=== PATIENT | female | born 1940 | race Caucasian/White ===

== ENCOUNTER → 2020-12-09 | Outpatient (CLI) | payer MEDICARE, OTHER ==
[~2020-12-09] MED LIST: ALBU2.5V5 INH; ALBU3IS INH; ALBU90OI INH; ALBU90OI61 INH; AMOCLA875 PO; ASPI81CH PO; Aspir 8181 MG PO; BENZ100A PO; CEFP200 PO; CENTRUM SILVER1 EAC2 PO; CICLODAN6.6 ML; CLOBET30L; CLON.2 PO; CODACE30 PO; DULO60 PO; FISH1000 PO; FLECTOR; FLOVENT HFA12 GM INH; FLUC200 PO; GABA300 PO; GABA300T24; HYDCHL25 PO; HYDMOR2 PO; IBUP800 PO; K-Dur20 MEQ PO; LISI20 PO; LOPE2C PO; LOSARTAN POTAS100 MG PO; OMEP20ER PO; OXYB5 PO; OXYC5; PIOG15 PO; PIRO10 PO; PRED20 PO; PROM25 PO; Pyridium200 MG PO; QVAR7.3 G1 IH; REPAGLINIDE0.5 MG PO; ROPI1 PO; RXHYDMOR2 PO; SERT50 PO; SULTRIDS PO; TOCO1000 PO; VENL37.5 PO; VITAMIN D-32000 UNI1 PO; Vibramycin100 MG PO; Zofran8 MG PO
== END ==
LOC: LAB 10:34 → LAB SHORT 10:34
DX: R30.0 Dysuria (principal)
CPT/HCPCS: 87077; 87086; 87186

== ENCOUNTER → 2021-01-22 | Outpatient (CLI) | payer MEDICARE, OTHER ==
[2021-01-22 14:38] LABS: Appearance, Urine Clear (Clear); Bilirubin, Urine Neg (Neg); Blood, Urine Neg (Neg); Color, Urine Yellow (P-Yellow); Glucose Qualitative, Urine Neg (Normal); Ketones, Urine Neg (Neg); Leukocyte Esterase, Urine Neg (Neg); Nitrite, Urine Pos (Neg); Protein, Urine Neg (Neg); Urobilinogen, Urine NORM (Normal)
[2021-01-22 14:48] LABS: Bacteria Many /hpf; Red Blood Cells, Urine 0-2 /hpf (0-2); Squamous Epithelial Cells Few /hpf (Few)
== END ==
LOC: LAB SHORT 13:49 → PLD 13:49
PROVIDERS: Nurse Practitioner Family
DX: R30.9 Painful micturition, unspecified (principal); R30.0 Dysuria
CPT/HCPCS: 81001; 87077; 87086; 87186

== ENCOUNTER 2021-03-05 07:58 | Emergency (ER) | payer MEDICARE, OTHER ==
[~2021-03-05] VITALS: Ht 165.1 cm; Wt 122.5 kg
[~2021-03-05 07:58] MED LIST changes: -ALBU2.5V5 INH; -ALBU90OI INH; -ASPI81CH PO; -Aspir 8181 MG PO; -CEFP200 PO; -CICLODAN6.6 ML; -CLOBET30L; -CODACE30 PO; -DULO60 PO; -FLOVENT HFA12 GM INH; -GABA300 PO; -IBUP800 PO; -OXYB5 PO; -PIOG15 PO; -Pyridium200 MG PO; -REPAGLINIDE0.5 MG PO; -Vibramycin100 MG PO
[2021-03-05 08:37] LABS: BASOPHILS ABSOLUTE AUTO 0.03 K/mm3 (0.00-0.23); BASOPHILS PERCENT AUTO 0 % (0-2); EOSINOPHILS ABSOLUTE AUTO 0.24 K/mm3 (0.00-0.68); EOSINOPHILS PERCENT AUTO 3 % (0-6); Hematocrit 39.1 % (33.0-51.0); Hemoglobin 12.7 g/dL (11.5-16.0); IMMATURE GRAN ABSOLUTE AUTO 0.07 K/mm3 (0.00-0.10); IMMATURE GRAN PERCENT AUTO 1 % (0-1); LYMPHOCYTES PERCENT AUTO 15 % (21-46); MONOCYTES ABSOLUTE AUTO 0.54 K/mm3 (0.16-1.47); MONOCYTES PERCENT AUTO 7 % (4-13); Mean Corpuscular HGB 29.3 pg (26.0-34.0); Mean Corpuscular HGB Conc 32.5 g/dL (31.5-36.5); Mean Corpuscular Volume 90 fL (80-100); Mean Platelet Volume 9.1 fL (9.1-12.4); NEUTROPHILS ABSOLUTE AUTO 5.55 K/mm3 (1.96-9.15); NEUTROPHILS PERCENT AUTO 74 % (41-73); Platelet Count 184 K/mm3 (150-400); RDW Coefficient Variation 14.6 % (11.7-14.2); RDW Standard Deviation 48.1 fL (35.1-46.3); Red Blood Cell Count 4.34 M/mm3 (3.80-5.20); White Blood Cell Count 7.53 K/mm3 (4.00-11.30)
[2021-03-05 08:59] LABS: Alanine Aminotransfer (ALT/SGP 12 U/L (12-78); Albumin/Globulin Ratio 0.8 (0.8-1.8); Alk Phos 127 U/L (50-136); Anion Gap 4 mmol/L (6-16); Aspartate Aminotrans (AST/SGOT 8 U/L (12-37); Bilirubin, Total 0.5 mg/dL (0.1-1.0); Blood Urea Nitrogen 16 mg/dL (8-24); Bun/Creatinine Ratio 26.1 (12.0-20.0); CO2, Blood 31 mmol/L (21-32); Calcium, Blood 8.5 mg/dL (8.5-10.1); Chloride, Blood 109 mmol/L (98-108); Creatinine, Blood 0.61 mg/dL (0.40-1.00); Globulin, Blood 3.8 g/dL (2.2-4.0); Glomerular Filtration Rate >60 (60-); Glucose, Blood 117 mg/dL (70-99); Potassium, Blood 3.6 mmol/L (3.5-5.5); Sodium, Blood 144 mmol/L (136-145); Total Protein, Blood 6.8 g/dL (6.4-8.2); Troponin I <0.015 ng/mL (0.000-0.040)
[2021-03-05] MEDS ORDERED: ALBU90OI INH ×2 (09:30→10:06)
[2021-03-05] MEDS ORDERED: Vibramycin100 MG PO ×2 (09:51→10:06)
== END 2021-03-05 10:11 | disposition home or self-care (01) ==
LOC: ER 07:58
PROVIDERS: Physician Assistant
DX: J18.9 Pneumonia, unspecified organism (principal); J45.901 Unspecified asthma with (acute) exacerbation; Z79.899 Other long term (current) drug therapy
CPT/HCPCS: 36415; 71045; 80053; 84484; 85025; 93005; 93010; 94640; 96374; 99285-25; J2930

== ENCOUNTER 2021-03-24 21:15 | Inpatient (IN) | payer MEDICARE, OTHER ==
[~2021-03-24] VITALS: Ht 165.1 cm; Wt 118.0 kg
[~2021-03-24 21:15] MED LIST changes: +ALBU90OI INH; +CEFP200 PO; -CLON.2 PO; -OMEP20ER PO; +Pyridium200 MG PO; -ROPI1 PO; +Vibramycin100 MG PO
[2021-03-24 21:51] LABS: BASOPHILS ABSOLUTE AUTO 0.02 K/mm3 (0.00-0.23); BASOPHILS PERCENT AUTO 0 % (0-2); EOSINOPHILS ABSOLUTE AUTO 0.03 K/mm3 (0.00-0.68); EOSINOPHILS PERCENT AUTO 0 % (0-6); Hematocrit 41.7 % (33.0-51.0); Hemoglobin 13.2 g/dL (11.5-16.0); IMMATURE GRAN ABSOLUTE AUTO 0.05 K/mm3 (0.00-0.10); IMMATURE GRAN PERCENT AUTO 1 % (0-1); LYMPHOCYTES ABSOLUTE AUTO 0.69 K/mm3 (0.84-5.20); LYMPHOCYTES PERCENT AUTO 8 % (21-46); MONOCYTES ABSOLUTE AUTO 1.08 K/mm3 (0.16-1.47); MONOCYTES PERCENT AUTO 13 % (4-13); Mean Corpuscular HGB 29.2 pg (26.0-34.0); Mean Corpuscular HGB Conc 31.7 g/dL (31.5-36.5); Mean Corpuscular Volume 92 fL (80-100); Mean Platelet Volume 10.5 fL (9.1-12.4); NEUTROPHILS ABSOLUTE AUTO 6.37 K/mm3 (1.96-9.15); NEUTROPHILS PERCENT AUTO 77 % (41-73); Platelet Count 155 K/mm3 (150-400); RDW Coefficient Variation 14.4 % (11.7-14.2); RDW Standard Deviation 48.8 fL (35.1-46.3); Red Blood Cell Count 4.52 M/mm3 (3.80-5.20); White Blood Cell Count 8.24 K/mm3 (4.00-11.30)
[2021-03-24 22:08] LABS: Alanine Aminotransfer (ALT/SGP 15 U/L (12-78); Albumin, Blood 2.7 g/dL (3.4-5.0); Albumin/Globulin Ratio 0.7 (0.8-1.8); Alk Phos 86 U/L (50-136); Anion Gap 3 mmol/L (6-16); Aspartate Aminotrans (AST/SGOT 14 U/L (12-37); Bilirubin, Total 0.6 mg/dL (0.1-1.0); Blood Urea Nitrogen 23 mg/dL (8-24); Bun/Creatinine Ratio 24.3 (12.0-20.0); CO2, Blood 26 mmol/L (21-32); Calcium, Blood 8.5 mg/dL (8.5-10.1); Chloride, Blood 108 mmol/L (98-108); Creatinine, Blood 0.95 mg/dL (0.40-1.00); Glomerular Filtration Rate >60 (60-); Glucose, Blood 139 mg/dL (70-99); Potassium, Blood 3.7 mmol/L (3.5-5.5); Sodium, Blood 137 mmol/L (136-145); Total Protein, Blood 6.7 g/dL (6.4-8.2)
[2021-03-24] MEDS ORDERED: ROPI1 PO (22:14)
[2021-03-24] MEDS ORDERED: CLON.2 PO (22:14)
[2021-03-24] MEDS ORDERED: OMEP20ER PO (22:14)
[2021-03-24] MEDS ORDERED: DULO60 PO (22:15)
[2021-03-24] MEDS ORDERED: OXYB5 PO (22:16)
[2021-03-24] MEDS ORDERED: PIOG15 PO (22:16)
--- NOTE | 2021-03-25 04:11 | NUR ---
SHIFT SUMMARY A/OX3, 1 ASSIST TO BSC. APPEARS ANXIOUS AT TIMES. URINARY FREQUENCY AND FLANK PAIN NOTED. VSS, NO ACUTE CHANGES AT THIS TIME. BED IN LOWEST POSITION WITH CALL LIGHT IN REACH. WILL CONTINUE TO MONITOR AND REPORT TO ONCOMING RN.
[2021-03-25 06:08] LABS: BASOPHILS ABSOLUTE AUTO 0.01 K/mm3 (0.00-0.23); BASOPHILS PERCENT AUTO 0 % (0-2); EOSINOPHILS ABSOLUTE AUTO 0.04 K/mm3 (0.00-0.68); EOSINOPHILS PERCENT AUTO 1 % (0-6); Hematocrit 38.8 % (33.0-51.0); Hemoglobin 12.2 g/dL (11.5-16.0); IMMATURE GRAN ABSOLUTE AUTO 0.06 K/mm3 (0.00-0.10); IMMATURE GRAN PERCENT AUTO 1 % (0-1); LYMPHOCYTES ABSOLUTE AUTO 0.77 K/mm3 (0.84-5.20); LYMPHOCYTES PERCENT AUTO 13 % (21-46); MONOCYTES ABSOLUTE AUTO 0.72 K/mm3 (0.16-1.47); MONOCYTES PERCENT AUTO 12 % (4-13); Mean Corpuscular HGB 28.4 pg (26.0-34.0); Mean Corpuscular HGB Conc 31.4 g/dL (31.5-36.5); Mean Corpuscular Volume 90 fL (80-100); Mean Platelet Volume 10.7 fL (9.1-12.4); NEUTROPHILS ABSOLUTE AUTO 4.25 K/mm3 (1.96-9.15); NEUTROPHILS PERCENT AUTO 73 % (41-73); Platelet Count 141 K/mm3 (150-400); RDW Coefficient Variation 14.4 % (11.7-14.2); RDW Standard Deviation 48.3 fL (35.1-46.3); Red Blood Cell Count 4.29 M/mm3 (3.80-5.20); White Blood Cell Count 5.85 K/mm3 (4.00-11.30)
[2021-03-25 06:35] LABS: Anion Gap 3 mmol/L (6-16); Blood Urea Nitrogen 18 mg/dL (8-24); Bun/Creatinine Ratio 20.7 (12.0-20.0); CO2, Blood 28 mmol/L (21-32); Calcium, Blood 8.1 mg/dL (8.5-10.1); Chloride, Blood 109 mmol/L (98-108); Creatinine, Blood 0.87 mg/dL (0.40-1.00); Glomerular Filtration Rate >60 (60-); Glucose, Blood 105 mg/dL (70-99); Potassium, Blood 3.5 mmol/L (3.5-5.5); Sodium, Blood 140 mmol/L (136-145)
--- NOTE | 2021-03-25 14:18 | NUR ---
ADMIT: 03/24/21 DISCHARGE: DX: Positive blood cultures CC: [email or web address] ISAIAH CALL: RESIDENCE: None CAREGIVER: Mary Rodgers Or Charity Barker, Child, Charity Barker, Child, Kristin Leo, Child, DX: asthma, depressive disorder, HTN, environmental allergy, GERD, PVD, see list DME: DM supplies, Knee brace, walking boot CCM: Referral- HOME HEALTH: [facility]- 2019 SUMMARY: Admit: 03/24/21 03/25/21- per chart review with Dr. Patton, pt is on IV antibiotics and has isolation order in place. Palliative care was asked to consult regarding her getting a POLST and have advanced care planning. There is no d/c plan for the pt at this time. -tyler
--- NOTE | 2021-03-25 14:59 | NUR ---
Spiritual care note: Per admit trigger, I was tasked to meet with Luther to address code status. she has a POLST in EMR from 2013 that reflects her wishes as Full Code, no intubation, tube feeding. Luther states she has not slept in weeks and has been laying in bed at home crying. She is physically and emotionally exhausted and fels confused by her complicated medical problems. She states that her PCP told her she needs "a kidney, liver, and pancreas doctor." But, she has no idea how to go about this. She has 2 dtrs, one lives with her. Luther appears deconditioned and far too tired for indepth/complicated conversation. I advised her that her 7 year old POLST should probably be revisited. She agreed, but also told me she wants CPR, no intubation. Partially completed POLST on bedisde table. I asked Harjinder in palliative care to follow up tomorrow. Hopefully, William will be more rested. Prayer provided and luther was thankful for encouragement. [employer] services will remain available.
--- NOTE | 2021-03-25 16:47 | NUR ---
SHIFT SUMMARY NO ACUTE CHANGES T/O SHIFT, A&Ox4, CALM AND COOPERATIVE. DENIES ANY DISTRESS BESIDES FEELING NOT WELL THESE LAST FEW WEEKS. FREQUENT AND URGENT URINATION CONTINUES. NO BM THIS SHIFT. GOOD ORAL INTAKE. ABD STILL FIRM AND TENDER TO THE TOUCH, PAIN LOCATED AT THE BILATERAL FLANKS WITH PALPATION. TREATED X1 FOR PAIN. NS @ 75 ML/HR CONTINUES. CONTACT PRECAUTIONS DC'D PER MD ORDERS. PT IS CURRENTLY RESTING IN BED, CALL LIGHT WITHIN REACH. CALLS APPROPRIATELY.
--- NOTE | 2021-03-26 04:00 | NUR ---
SHIFT SUMMARY A/O X3, ABLE TO MAKE NEEDS KNOWN. SOME CONFUSION WITH ANXIOUSNESS NOTED AT TIMES. COOPERATIVE WIHT CARE. C/O PAIN/DISCOMFORT TO HEAD; MEDICATED PER EMAR. FREQUENCY AND URGENCY REMAINS WITH URINATION. ENCOURAGING WATER, BUT PREFERS CRANBERRY JUICE. REMAINS ON IV HYDRATION /c NS @ 75 ML/HR. NO ACUTE CHANGES NOTED OVERNIGHT. MINIMAL REST NOTED, BUT ENCOURAGED. BED REMAINS IN LOWEST POSITION. CALL LIGHT AND BELONGINGS WITHIN REACH. CONTINUE WITH CURRENT PLAN OF CARE. REPORT TO ONCOMING RN.
--- NOTE | 2021-03-26 15:33 | NUR ---
03/26/21- per chart review with Dr. Sanchez, pt is still on IV antibiotics and there is no plan for d/c at this time. Palliative care did come and met with pt and they filled out a new POLST form.-tyler
--- NOTE | 2021-03-26 16:52 | NUR ---
SHIFT SUMMARY NO ACUTE CHANGES T/O SHIFT, A&Ox4, CALM AND COOPERATIVE c CARE. DENIES ANY DISTRESS BESIDES ABD DISCOMFORT AND BACK PAIN. TREATED PER EMAR WHICH APPEARED TO BE EFFECTIVE, PT ABLE TO SLEEP AFTER. MORNING VITALS WERE COMPLETED, O2 SAT WAS IN THE 80'S. PT REPORTS PREVIOUS DX OF MARTHA, DOES NOT USE CPAP @ NIGHT. 3 L/MIN O2 REQUIRED TO KEEP O2 SATS IN THE 90'S. CONT PULSE OX ORDER TO BE WORN TONIGHT TO SEE IF PT WILL REQUIRE/QUALIFY FOR CPAP. O2 SATS STABLE DURING DAY AND WHILE PT IS AWAKE. PT IS CURRENTLY LYING IN BED, WITH BED ALARM AND CALL LIGHT WITHIN REACH. NO BM, CONTINUES TO HAVE URGENCY AND FREQUENT URINATION.
--- NOTE | 2021-03-27 04:35 | NUR ---
SHIFT SUMMARY PT COMPLAINED OF CONTINUED FREQUENCY AND DISCOMFORT WITH URINATION. PT REPORTED THAT AFTER LUNCH DURING THE DAY YESTERDAY FEELING BLOATED AND NAUSEOUS. THIS IMPROVED BUT DID NOT RESOLVE COMPLETELY. PT COMPLAINED OF BACK AND ABD PAIN. MEDICATED X 1 W/ ULTRAM 50 MG. CONT OX PLACED ON PT BY RT. PT FOUND TO BE IN THE LOW 80'S ON RA THIS AM. PLACED ON 3 L VIA NC. O2 SATS IN THE MID 90'S. OTHERWISE VITAL SIGNS STABLE. WILL CONTINUE TO MONITOR AND REPORT TO DAY RN.
--- NOTE | 2021-03-27 16:39 | NUR ---
SHIFT SUMMARY PT A&Ox4. COOPERATIVE WITH CARE. PT ON 2L O2 AND CONT BIOX WITH SAT'S IN LOW 90'S. PT SBA WITH CANE TO BSC. CONTINENT WITH FREQUENT URINATION. DENIES DYSURIA. PT REPORTS NO BM x4 DAYS. BOWEL CARE STARTED TODAY. REPORTED PAIN 1x TODAY IN BLE AND BACK. MEDICATED PER EMAR. PT GETTING IV ABX AND FLUIDS. SPOKE ON PHONE WITH DAUGHTER, NICHOLAS, AND UPDATED ON PLAN OF CARE. PER DR MUSTAFA, CURRENT PLAN IS FOR PT TO DC TOMORROW. VITALS REVIEWED. PT DENIES ANY NEEDS AT THIS TIME.
--- NOTE | 2021-03-28 05:00 | NUR ---
SHIFT SUMMARY PT APPEARED TO BE SLIGHTLY MORE CONFUSED THIS EVENING. INTERMITTENTLY MAKING STATEMENTS THAT DIDN'T MAKE SENSE. MENTATION APPEARS MORE CLEAR THIS AM. PT REMAINED ON 2 L THROUGHOUT THE NIGHT. O2 SATS IN THE LOW 90'S. PT WOULD REMOVE O2 OCCASSIONALLY AND WOULD DIP DOWN IN TO THE 80'S ON RA. PT CONTINUES TO HAVE FREQUENCY AND URGENCY WITH VOIDING. BACK PAIN. MEDICATED X 1 W/ ULTRAM. PT HAD A HARD TIME FEELING COMFORTABLE IN THE HOSPITAL BED. VITAL SIGNS HAVE BEEN STABLE. WILL CONTINUE TO MONITOR.
[2021-03-28] MEDS ORDERED: ASPI81CH PO (14:32)
[2021-03-28] MEDS ORDERED: CEFP200 PO (14:33)
--- NOTE | 2021-03-28 15:00 | NUR ---
PATIENT D/C'D TO HOME WITH DAUGHTER. DC INSTRUCTIONS AND EDUCATION DISCUSSED WITH PATIENT AND COPY PROVIDED. RX MEDICATIONS FAXED TO [facility]. PATIENT DENIES ANY FURTHER QUESTIONS OR CONCERNS.
[2021-06-11] MEDS ORDERED: CODACE30 PO (11:05)
[2021-06-11] MEDS ORDERED: Aspir 8181 MG PO (11:05)
[2021-06-11] MEDS ORDERED: ALBU2.5V5 INH (11:05)
[2021-06-11] MEDS ORDERED: CLON.2 PO (11:06)
[2021-06-11] MEDS ORDERED: CICLODAN6.6 ML (11:06)
[2021-06-11] MEDS ORDERED: CLOBET30L (11:06)
[2021-06-11] MEDS ORDERED: DULO60 PO (11:07)
[2021-06-11] MEDS ORDERED: FLOVENT HFA12 GM INH (11:07)
[2021-06-11] MEDS ORDERED: GABA300 PO (11:08)
[2021-06-11] MEDS ORDERED: OMEP20ER PO (11:08)
[2021-06-11] MEDS ORDERED: IBUP800 PO (11:08)
[2021-06-11] MEDS ORDERED: HYDCHL25 PO (11:08)
[2021-06-11] MEDS ORDERED: OXYB5 PO (11:09)
[2021-06-11] MEDS ORDERED: REPAGLINIDE0.5 MG PO ×2 (11:09)
[2021-06-11] MEDS ORDERED: PIOG15 PO (11:09)
[2021-06-11] MEDS ORDERED: ROPI1 PO (11:10)
== END 2021-03-28 15:00 | disposition home or self-care (01) | DRG 690 ==
LOC: ER 21:15 → MEDS 21:16
PROVIDERS: Nurse Practitioner Acute Care; Physician Assistant; ADMIT Family Medicine
DX: N10 Acute pyelonephritis (principal); R78.81 Bacteremia; Z68.41 Body mass index [BMI] 40.0-44.9, adult; N39.0 Urinary tract infection, site not specified; B96.20 Unspecified Escherichia coli [E. coli] as the cause of diseases classified elsewhere; R19.7 Diarrhea, unspecified; R09.02 Hypoxemia; I10 Essential (primary) hypertension; Z86.16 Personal history of COVID-19; K21.9 Gastro-esophageal reflux disease without esophagitis; E78.5 Hyperlipidemia, unspecified; I73.9 Peripheral vascular disease, unspecified; E66.01 Morbid (severe) obesity due to excess calories; F41.8 Other specified anxiety disorders; M19.90 Unspecified osteoarthritis, unspecified site; F41.9 Anxiety disorder, unspecified; E11.51 Type 2 diabetes mellitus with diabetic peripheral angiopathy without gangrene; Z88.1 Allergy status to other antibiotic agents; Z88.5 Allergy status to narcotic agent; Z96.639 Presence of unspecified artificial wrist joint; Z79.899 Other long term (current) drug therapy; Z96.651 Presence of right artificial knee joint; Z90.49 Acquired absence of other specified parts of digestive tract; Z98.890 Other specified postprocedural states; Z85.028 Personal history of other malignant neoplasm of stomach
CPT/HCPCS: 36415; 71045; 80048; 80053; 81001; 82947; 83605; 83735; 85025; 87015; 87040; 87045; 87046; 87077; 87086; 87186; 87205; 87493; 87899; 94762; 96365; 96372; 96375; 96376; 99284-25; A9270; G0378; J0696; J1650; J2405; J7030; J7120

== ENCOUNTER 2021-06-18 11:01 | Day surgery (SDC) | payer MEDICARE, OTHER ==
[~2021-06-18] VITALS: Ht 162.6 cm; Wt 118.9 kg
[~2021-06-18 11:01] MED LIST changes: +ALBU2.5V5 INH; +ASPI81CH PO; +Aspir 8181 MG PO; +CICLODAN6.6 ML; +CLOBET30L; +CLON.2 PO; +CODACE30 PO; +DULO60 PO; +FLOVENT HFA12 GM INH; +GABA300 PO; +IBUP800 PO; +OMEP20ER PO; +OXYB5 PO; +PIOG15 PO; +REPAGLINIDE0.5 MG PO; +ROPI1 PO
== END 2021-06-18 14:30 | disposition home or self-care (01) ==
LOC: ORSCSDS 11:01
PROVIDERS: Internal Medicine Gastroenterology
PROC: 0DBH8ZX Excision of Cecum, Via Natural or Artificial Opening Endoscopic, Diagnostic (ICD-10-PCS; principal; 2021-06-18 12:00)
PROC: 0DBK8ZX Excision of Ascending Colon, Via Natural or Artificial Opening Endoscopic, Diagnostic (ICD-10-PCS; principal; 2021-06-18 12:00)
DX: Z12.11 Encounter for screening for malignant neoplasm of colon (principal); D12.0 Benign neoplasm of cecum; D12.2 Benign neoplasm of ascending colon; K57.30 Diverticulosis of large intestine without perforation or abscess without bleeding; E66.9 Obesity, unspecified; K64.8 Other hemorrhoids; Z68.42 Body mass index [BMI] 45.0-49.9, adult; I10 Essential (primary) hypertension; E78.5 Hyperlipidemia, unspecified; F41.9 Anxiety disorder, unspecified; J45.909 Unspecified asthma, uncomplicated; E11.9 Type 2 diabetes mellitus without complications; K21.9 Gastro-esophageal reflux disease without esophagitis; G47.30 Sleep apnea, unspecified; Z79.899 Other long term (current) drug therapy
CPT/HCPCS: 82947; 88305; J2704; J7120

== ENCOUNTER 2022-02-21 12:49 | Emergency (ER) | payer MEDICARE, OTHER ==
[~2022-02-21] VITALS: Ht 162.6 cm; Wt 126.1 kg
[2022-02-21 14:08] LABS: BASOPHILS ABSOLUTE AUTO 0.04 K/mm3 (0.00-0.23); BASOPHILS PERCENT AUTO 1 % (0-2); EOSINOPHILS ABSOLUTE AUTO 0.23 K/mm3 (0.00-0.68); EOSINOPHILS PERCENT AUTO 3 % (0-6); Hematocrit 43.6 % (33.0-51.0); IMMATURE GRAN ABSOLUTE AUTO 0.09 K/mm3 (0.00-0.10); IMMATURE GRAN PERCENT AUTO 1 % (0-1); LYMPHOCYTES ABSOLUTE AUTO 1.19 K/mm3 (0.84-5.20); LYMPHOCYTES PERCENT AUTO 17 % (21-46); MONOCYTES ABSOLUTE AUTO 0.54 K/mm3 (0.16-1.47); MONOCYTES PERCENT AUTO 8 % (4-13); Mean Corpuscular HGB 28.9 pg (26.0-34.0); Mean Corpuscular HGB Conc 32.1 g/dL (31.5-36.5); Mean Corpuscular Volume 90 fL (80-100); Mean Platelet Volume 10.3 fL (9.1-12.4); NEUTROPHILS ABSOLUTE AUTO 4.95 K/mm3 (1.96-9.15); NEUTROPHILS PERCENT AUTO 70 % (41-73); Platelet Count 267 K/mm3 (150-400); RDW Standard Deviation 49.5 fL (35.1-46.3); Red Blood Cell Count 4.84 M/mm3 (3.80-5.20); White Blood Cell Count 7.04 K/mm3 (4.00-11.30)
[2022-02-21 14:43] LABS: Alanine Aminotransfer (ALT/SGP 60 U/L (12-78); Albumin, Blood 3.2 g/dL (3.4-5.0); Albumin/Globulin Ratio 0.8 (0.8-1.8); Alk Phos 260 U/L (50-136); Anion Gap 1 mmol/L (6-16); Aspartate Aminotrans (AST/SGOT 91 U/L (12-37); Bilirubin, Total 0.8 mg/dL (0.1-1.0); Blood Urea Nitrogen 16 mg/dL (8-24); Bun/Creatinine Ratio 25.2 (12.0-20.0); CO2, Blood 31 mmol/L (21-32); Calcium, Blood 9.1 mg/dL (8.5-10.1); Chloride, Blood 107 mmol/L (98-108); Creatinine, Blood 0.64 mg/dL (0.40-1.00); Globulin, Blood 4.1 g/dL (2.2-4.0); Glomerular Filtration Rate >60 (60-); Glucose, Blood 120 mg/dL (70-99); Potassium, Blood 4.9 mmol/L (3.5-5.5); Sodium, Blood 139 mmol/L (136-145); Total Protein, Blood 7.3 g/dL (6.4-8.2)
[2022-02-21] MEDS ORDERED: BENZ100A PO (18:12)
[2022-02-21] MEDS ORDERED: Vibramycin100 MG PO (18:12)
== END 2022-02-21 18:16 | disposition home or self-care (01) ==
LOC: ER 12:49
PROVIDERS: Physician Assistant
DX: R05.9 Cough, unspecified (principal); K21.9 Gastro-esophageal reflux disease without esophagitis; E11.9 Type 2 diabetes mellitus without complications; I10 Essential (primary) hypertension; Z79.899 Other long term (current) drug therapy; Z88.8 Allergy status to other drugs, medicaments and biological substances
CPT/HCPCS: 36415; 71046; 80053; 83690; 83880; 85025; 99283-25

== ENCOUNTER → 2022-12-20 | Outpatient (CLI) | payer MEDICARE, OTHER ==
[~2022-12-20] MED LIST changes: +DIGOX125 MC1 PO; +ELIQUIS5 M2 PO; +FURO40 PO; +METO100ER PO; +POTA10T PO; +Prinivil10 MG PO
== END ==
LOC: PLD 08:19 → LAB SHORT 08:19
DX: L60.2 Onychogryphosis (principal); B35.1 Tinea unguium
CPT/HCPCS: 88305; 88312

== ENCOUNTER → 2022-12-20 | Outpatient (CLI) | payer MEDICARE, OTHER | END | disposition home or self-care (01) | LOC: LAB SHORT 17:04 → LAB 17:04 | DX: B35.1 Tinea unguium (principal); L60.2 Onychogryphosis | CPT/HCPCS: 87220 ==

== ENCOUNTER → 2022-12-28 | Outpatient (CLI) | payer MEDICARE, OTHER | LOC: LAB SHORT 13:00 → LAB 13:00 → LAB FUT 12-16 17:10 | DX: R35.0 Frequency of micturition (principal); R30.0 Dysuria | CPT/HCPCS: 87077; 87086; 87186 ==

== ENCOUNTER 2023-01-29 23:33 | Inpatient (IN) | payer MEDICARE, OTHER ==
[~2023-01-29] VITALS: Ht 162.6 cm; Wt 121.3 kg
[2023-01-29] MEDS ORDERED: GABA100 (23:57)
[2023-01-29] MEDS ORDERED: BUPROPION XL150 M1 PO (23:58)
[2023-01-29] MEDS ORDERED: PIOGLITAZONE HC15 MG PO (23:59)
[2023-01-30 00:49] LABS: BASOPHILS ABSOLUTE AUTO 0.02 K/mm3 (0.00-0.23); BASOPHILS PERCENT AUTO 0 % (0-2); EOSINOPHILS ABSOLUTE AUTO 0.17 K/mm3 (0.00-0.68); EOSINOPHILS PERCENT AUTO 2 % (0-6); Hematocrit 41.6 % (33.0-51.0); Hemoglobin 12.7 g/dL (11.5-16.0); IMMATURE GRAN ABSOLUTE AUTO 0.06 K/mm3 (0.00-0.10); IMMATURE GRAN PERCENT AUTO 1 % (0-1); LYMPHOCYTES ABSOLUTE AUTO 0.93 K/mm3 (0.84-5.20); LYMPHOCYTES PERCENT AUTO 11 % (21-46); MONOCYTES ABSOLUTE AUTO 0.64 K/mm3 (0.16-1.47); MONOCYTES PERCENT AUTO 7 % (4-13); Mean Corpuscular HGB 29.7 pg (26.0-34.0); Mean Corpuscular HGB Conc 30.5 g/dL (31.5-36.5); Mean Corpuscular Volume 97 fL (80-100); Mean Platelet Volume 10.1 fL (9.1-12.4); NEUTROPHILS PERCENT AUTO 79 % (41-73); Platelet Count 234 K/mm3 (150-400); RDW Coefficient Variation 17.1 % (11.7-14.2); RDW Standard Deviation 60.2 fL (35.1-46.3); Red Blood Cell Count 4.28 M/mm3 (3.80-5.20); White Blood Cell Count 8.72 K/mm3 (4.00-11.30)
[2023-01-30 00:52] LABS: Source, Urine Straight Cath
[2023-01-30 01:00] LABS: Bilirubin, Urine Neg (Neg); Blood, Urine Neg (Neg); Glucose Qualitative, Urine Neg (Neg); Ketones, Urine Neg (Neg); Leukocyte Esterase, Urine Neg (Neg); Nitrite, Urine Neg (Neg); Protein, Urine 3+ (Neg); Urobilinogen, Urine 1+ (Normal)
[2023-01-30 01:08] LABS: Albumin, Blood 2.9 g/dL (3.4-5.0); Albumin/Globulin Ratio 0.7 (0.8-1.8); Bilirubin, Total 0.8 mg/dL (0.1-1.0); Calcium, Blood 8.6 mg/dL (8.5-10.1); Globulin, Blood 4.1 g/dL (2.2-4.0); Potassium, Blood 3.9 mmol/L (3.5-5.5)
[2023-01-30 01:16] LABS: Appearance, Urine Clear (Clear); Color, Urine Yellow (P-Yellow)
[2023-01-30 01:17] LABS: Bacteria Few /hpf; Red Blood Cells, Urine Not Seen /hpf (0-2); Squamous Epithelial Cells Mod /hpf (Few); White Blood Cells, Urine 0-2 /hpf (0-5)
[2023-01-30 01:18] LABS: Amorphous Mod (0-Heavy)
[2023-01-30 01:33] LABS: Influenza A, PCR NEGATIVE (NEGATIVE); Influenza B, PCR NEGATIVE (NEGATIVE); Resp Syncytial Virus, PCR NEGATIVE (NEGATIVE); SARS-Cov-2 (COVID-19) PCR, MMC NEGATIVE (NEGATIVE)
--- NOTE | 2023-01-30 11:43 | NUR ---
PROVIDER NOTIFIED VIA TELEPHONE RE: PT POC BLOOD GLUCOSE LEVEL. NO NEW ORDERS AT THIS TIME.
--- NOTE | 2023-01-30 13:05 | NUR ---
UPDATE: HYPOGLYCEMIC PROTOCOL FOLLOWED. PT ABLE TO DRINK CRANBERRY JUICE. REPEAT POC GLUCOSE CHECK REVEALS BLOOD SUGAR OF 145. WILL CONTINUE TO MONITOR AND TREAT ACCORDINGLY UNTIL CHANGE OF SHIFT.
--- NOTE | 2023-01-30 17:41 | NUR ---
SHIFT SUMMARY: PT QUITE RESTLESS/AGITATED AND CONFUSED THIS AM. PT NOT ANSWERING QUESTIONS OR COOPERATING W/CARE UNTIL APPROX 1100 WHEN SHE BECOMES MORE ALERT AND ABLE TO FOLLOW COMMANDS. PT ORIENTED TO SELF, CONFUSED RE: LOCATION/SITUATION AND BENEFITS F/FREQUENT REMINDERS. PT HAS BEEN SLEEPING MOST OF THE AFTERNOON W/DAUGHTER AT BEDSIDE, AGITATION AND RESTLESSNESS APPEAR IMPROVED. O2 SATS MAINTAINED >92% ON BASELINE 2 L/MIN NC. AFIB CONTINUES ON MONITOR, RATE HAS IMPROVED TO 110-120s. NO BM THIS SHIFT. ATTENDS IN PLACE, CHECKED OFTEN AND CHANGED NEEDED. PT REPOSITIONED PER PROTOCOL. POWERGLIDE PLACED TO LEWIS, FLUIDS INFUSING PER ORDERS. PT DAUGHTER WENT HOME, RECENTLY CALLED W/CONCERN ABOUT IMAGING TESTS AND ADMINISTRATION OF GABAPENTIN (STATES HALLUCINATIONS). PROVIDER CALLED AND CONCERNS SHARED W/NO NEW ORDERS/CHANGES. PROVIDER STATES CONVERSATION HAD AT BEDSIDE W/DAUGHTER RE: GABAPENTIN W/PLAN TO KEEP ORDER. PT'S DAUGHTER UPDATED VIA TELEPHONE, V/U AND REQUESTS GABAPENTIN ADMINISTERED ONLY IF PT C/O PAIN. WILL PASS INFORMATION ALONG TO ONCOMING RN. AT THIS TIME, PT IS RESTING IN BED W/EYES CLOSED. RESPIRATIONS EVEN AND UNLABORED. NADN. CALL LIGHT WITHIN REACH, BED ALARM ON. WILL CONTINUE TO MONITOR AND TREAT ACCORDINGLY UNTIL CHANGE OF SHIFT.
[2023-01-31 04:08] LABS: BASOPHILS ABSOLUTE AUTO 0.05 K/mm3 (0.00-0.23); BASOPHILS PERCENT AUTO 1 % (0-2); EOSINOPHILS ABSOLUTE AUTO 0.12 K/mm3 (0.00-0.68); EOSINOPHILS PERCENT AUTO 1 % (0-6); Hematocrit 41.8 % (33.0-51.0); IMMATURE GRAN ABSOLUTE AUTO 0.12 K/mm3 (0.00-0.10); IMMATURE GRAN PERCENT AUTO 1 % (0-1); LYMPHOCYTES ABSOLUTE AUTO 1.52 K/mm3 (0.84-5.20); LYMPHOCYTES PERCENT AUTO 14 % (21-46); MONOCYTES ABSOLUTE AUTO 0.75 K/mm3 (0.16-1.47); MONOCYTES PERCENT AUTO 7 % (4-13); Mean Corpuscular HGB 30.7 pg (26.0-34.0); Mean Corpuscular HGB Conc 31.1 g/dL (31.5-36.5); Mean Corpuscular Volume 99 fL (80-100); Mean Platelet Volume 10.2 fL (9.1-12.4); NEUTROPHILS PERCENT AUTO 76 % (41-73); Platelet Count 253 K/mm3 (150-400); RDW Coefficient Variation 17.4 % (11.7-14.2); RDW Standard Deviation 62.5 fL (35.1-46.3); Red Blood Cell Count 4.23 M/mm3 (3.80-5.20); White Blood Cell Count 10.66 K/mm3 (4.00-11.30)
[2023-01-31 04:39] LABS: Albumin, Blood 2.9 g/dL (3.4-5.0); Albumin/Globulin Ratio 0.7 (0.8-1.8); Bilirubin, Total 1.2 mg/dL (0.1-1.0); Bun/Creatinine Ratio 24.2 (12.0-20.0); Calcium, Blood 8.8 mg/dL (8.5-10.1); Creatinine, Blood 1.2 mg/dL (0.40-1.00); Globulin, Blood 4.3 g/dL (2.2-4.0); Potassium, Blood 4.1 mmol/L (3.5-5.5); Total Protein, Blood 7.2 g/dL (6.4-8.2)
--- NOTE | 2023-01-31 06:42 | NUR ---
SHIFT SUMMARY PATIENT ALERT AND ORIENTED X 3-4. MENTATION HAS GREATLY IMPROVED OVERNIGHT UPON INITIAL ASSESSMENT THE PATIENT WAS LETHARGIC AND ONLY ORIENTED TO SELF. SHE IS CURRENTLY UP IN HER CHAIR AND CONVERSING APPROPRIATELY WITH STAFF. SHE HAD NO COMPLAINTS OF PAIN OR SHORTNESS OF BREATH. LUNG SOUNDS DIMINISHED IN THE BASES, SPO2 GREATER THAN 90% ON HER BASELINE OXYGEN OF 2 LITERS VIA NASAL CANULA. VITAL SIGNS STABLE WITH HER HEART BEING IN AFIB 100'S-120'S. PATIENT DENIES CHEST PAIN/PRESSURE. NO ACUTE ISSUES NOTED OVERNIGHT. CALL LIGHT WITHIN REACH.
--- NOTE | 2023-01-31 18:56 | NUR ---
END OF SHIFT PT A&O X4 W/ SOME FORGETFULNESS. PT VSS. SPO2 > 92% ON 2L NC. MONITOR SHOWING AFIB, HR 110s-140s THIS SHIFT. CALL TO MD GARLAND TO REPORT PT HR REMAINS ELEVATED. W/ ORDERS FOR PRN IV LOPRESSOR, SEE EMAR. PT HR DECREASE 100-110s.
[2023-02-01 04:06] LABS: BASOPHILS ABSOLUTE AUTO 0.02 K/mm3 (0.00-0.23); BASOPHILS PERCENT AUTO 0 % (0-2); EOSINOPHILS PERCENT AUTO 3 % (0-6); Hematocrit 39.4 % (33.0-51.0); IMMATURE GRAN PERCENT AUTO 1 % (0-1); LYMPHOCYTES ABSOLUTE AUTO 1.09 K/mm3 (0.84-5.20); LYMPHOCYTES PERCENT AUTO 11 % (21-46); MONOCYTES ABSOLUTE AUTO 0.77 K/mm3 (0.16-1.47); MONOCYTES PERCENT AUTO 8 % (4-13); Mean Corpuscular HGB 30.2 pg (26.0-34.0); Mean Corpuscular HGB Conc 30.5 g/dL (31.5-36.5); Mean Corpuscular Volume 99 fL (80-100); Mean Platelet Volume 10.1 fL (9.1-12.4); NEUTROPHILS ABSOLUTE AUTO 7.42 K/mm3 (1.96-9.15); NEUTROPHILS PERCENT AUTO 77 % (41-73); Platelet Count 237 K/mm3 (150-400); RDW Coefficient Variation 17.2 % (11.7-14.2); RDW Standard Deviation 62.9 fL (35.1-46.3); Red Blood Cell Count 3.98 M/mm3 (3.80-5.20)
[2023-02-01 04:25] LABS: Bun/Creatinine Ratio 23.3 (12.0-20.0); Calcium, Blood 8.4 mg/dL (8.5-10.1); Creatinine, Blood 0.9 mg/dL (0.40-1.00); Potassium, Blood 3.8 mmol/L (3.5-5.5)
--- NOTE | 2023-02-01 04:40 | NUR ---
SHIFT SUMMARY PATIENT IS ALERT AND ORIENTED X4, FORGETFUL AT TIMES. 02 SATS 98% ON 2L NC, WHICH IS BASELINE. DAUGHTER AT BEDSIDE ALL NIGHT, HELPS WITH REORIENTING PATIENT. HR A.FIB 90-130, CALLED RESIDENT AND GAVE HOME DOSE OF PO METOPROLOL WHICH PATIENT NORMALLY GETS BID. BP REMAINS STABLE. 1 PERSON ASSIST UP TO BSC. CALL LIGHT IN REACH
--- NOTE | 2023-02-01 13:15 | NUR ---
Brief visit with Italia and her dtr, Charity. Italia is likely being discharged back home this afternoon. She was admitted at [facility] and abd pain, a-fib with RVR on 01/29/23. She lives at [facility]. She as a cane, walker, and home O2 at 2l/min. She has been followed by [facility] in the past. Charity states that she is moving to [place] for her 's job and that Italia will be moving to [place] to live with another daughter. They both state that they wish they had a clear answer for the symptoms that Italia had on admission. Italia and Charity state that they have a family meeting planned this afternoon with the MD to discuss her diagnosis. Italia has an appointment with her PCP tomorrow and will plan to follow up as scheduled if she is discharged.
--- NOTE | 2023-02-01 14:26 | NUR ---
DISCHARGE HOME PT A&O X4. VSS. SPO2 > 92% ON PT'S HOME BASELINE USE OF 2L NC. MONITOR SHOWING AFIB, HR 100-110s W/ BRIEF TOUCH UPS TO 120s-130s. PT DENYING PAIN/DISCOMFORT. PT DENYING BM THIS HOSPITAL STAY, STATING IT'S NOT UNCOMMON TO GO A FEW DAYS WITH OUT A BM. PT ENCOURAGED BY MD TO EAT A WELL BALANCED DIET W/ GOOD FIBER INTAKE. PT FOLLOWING UP W/ PCP TOMORROW SCHEDULED. PIV REMOVED. PT TAKEN OUT BY WHEELCHAIR @ APPROX 1415.
== END 2023-02-01 14:31 | disposition home health service (06) | DRG 391 ==
LOC: ER 23:33 → PCU 23:34
PROVIDERS: Family Medicine; Student in an Organized Health Care Education/Training Program; ADMIT Internal Medicine
DX: K52.9 Noninfective gastroenteritis and colitis, unspecified (principal); G92.8 Other toxic encephalopathy; I50.22 Chronic systolic (congestive) heart failure; J96.11 Chronic respiratory failure with hypoxia; N17.9 Acute kidney failure, unspecified; I48.91 Unspecified atrial fibrillation; G25.81 Restless legs syndrome; M19.90 Unspecified osteoarthritis, unspecified site; Z51.5 Encounter for palliative care; Z66 Do not resuscitate; E11.649 Type 2 diabetes mellitus with hypoglycemia without coma; M51.9 Unspecified thoracic, thoracolumbar and lumbosacral intervertebral disc disorder; K21.9 Gastro-esophageal reflux disease without esophagitis; K44.9 Diaphragmatic hernia without obstruction or gangrene; K22.2 Esophageal obstruction; E86.0 Dehydration; I11.0 Hypertensive heart disease with heart failure; Z20.822 Contact with and (suspected) exposure to COVID-19; Z88.1 Allergy status to other antibiotic agents; Z88.5 Allergy status to narcotic agent; Z88.8 Allergy status to other drugs, medicaments and biological substances; Z79.899 Other long term (current) drug therapy; Z79.51 Long term (current) use of inhaled steroids; Z79.01 Long term (current) use of anticoagulants; Z79.811 Long term (current) use of aromatase inhibitors; Z98.890 Other specified postprocedural states; Z87.19 Personal history of other diseases of the digestive system; Z86.19 Personal history of other infectious and parasitic diseases; Z90.49 Acquired absence of other specified parts of digestive tract; Z96.639 Presence of unspecified artificial wrist joint; Z85.028 Personal history of other malignant neoplasm of stomach
CPT/HCPCS: 0241U; 36415; 51701; 74177; 80048; 80053; 81001; 82140; 82947; 83605; 83690; 83735; 83880; 84443; 85025; 93005; 93010; 94760; 96361-59; 96365-59; 96375-59; 97162; 97165; 97530; 99285-25; A9270; C1751; G0378; J1200; J1650; J1790; J2060; J3475; J3480; J7030; Q9967

== ENCOUNTER → 2023-02-13 | Outpatient (CLI) | payer MEDICARE ==
[~2023-02-13] MED LIST changes: +BUPROPION XL150 M1 PO; +GABA100; +PIOGLITAZONE HC15 MG PO
== END ==
LOC: LAB SHORT 17:30 → LAB 17:30
DX: R30.0 Dysuria (principal)
CPT/HCPCS: 87086